=== PATIENT | male | born 1975 | race Caucasian/White ===

== ENCOUNTER 2019-05-18 16:23 | Emergency (ER) | payer BC ==
[~2019-05-18] VITALS: Ht 175.3 cm; Wt 80.7 kg
[2019-05-18 17:40] VITALS: Ht 175.3 cm; Wt 80.7 kg
[2019-05-18 20:23] VITALS: BP 146/89
== END 2019-05-18 20:23 | disposition home or self-care (01) ==
LOC: ED 16:23
DX: S86.912A Strain of unspecified muscle(s) and tendon(s) at lower leg level, left leg, initial encounter (principal); X58.XXXA Exposure to other specified factors, initial encounter; Y93.89 Activity, other specified; Y92.89 Other specified places as the place of occurrence of the external cause; Y99.8 Other external cause status